=== PATIENT | female | born 1995 ===

== ENCOUNTER 2024-05-24 15:42 | Emergency (ER) | payer OTHER ==
[~2024-05-24] VITALS: Ht 167.6 cm; Wt 85.5 kg
[2024-05-24 15:51] VITALS: BP 111/88; PULSE 80; RESP 14; TEMP 98.3; O2SAT 99
== END 2024-05-24 17:49 | disposition left against medical advice (07) ==
LOC: EMS 15:42
DX: K08.89 Other specified disorders of teeth and supporting structures (principal); Z53.21 Procedure and treatment not carried out due to patient leaving prior to being seen by health care provider